=== PATIENT | male | born 1985 | race Caucasian/White ===

== ENCOUNTER 2025-02-25 17:26 | Emergency (ER) | payer OTHER, SELFPAY ==
[2025-02-25 17:31] VITALS: BP 127/94; PULSE 64; TEMP 36.8; O2SAT 98; BMI 23.4
--- NOTE | 2025-02-25 17:43 | ED.LOWEXI1 ---
HPI HPI - Extremity Injury (Lower) General Chief Complaint: Extremity Injury, Lower Stated Complaint: Extremity Injury, Lower Time Seen by Provider: 02/25/25 17:30 Source: patient Mode of arrival: Wheelchair History of Present Illness HPI Narrative: 39 year old male presents to the ED for pain to his left foot and ankle s/p injury 02/23/25. Reports rolling his ankle. Denies N/T, weakness. He has had previous surgery on the ankle with hardware in place. He took Motrin [employer]PRESENT[employer]. Related Data Previous Rx's ?Medication ?Instructions ?Recorded hydrocodone 5 mg-acetaminophen 325 1 tab PO Q8H PRN pain 3 days #9 02/25/25 mg tablet tabs Allergies Allergy/AdvReac Type Severity Reaction Status Date / Time Penicillins Allergy Hives Verified 02/25/25 17:31 Opioid HPI Opioid Management Most Recent Pain and Opioid Data: No Data to Display Review of Systems ROS Constitutional Denies: fever or chills Ears, nose, mouth, and throat Denies: neck pain Cardiovascular Denies: chest pain Respiratory Denies: shortness of breath Musculoskeletal Reports: extremity pain; Denies: back pain Integumentary/Breast Denies: rash or redness Neurological Denies: numbness in extremities or weakness in extremities PFSH PFSH Social History Little interest or pleasure in doing things: not at all Feeling down, depressed, or hopeless: not at all Exam Constitutional Vital Signs, click to edit/add: Last Vital Signs Temp 98.2 F 02/25/25 17:31 Pulse 64 02/25/25 17:31 Resp 16 02/25/25 17:31 BP 127/94 H 02/25/25 17:31 Pulse Ox 98 02/25/25 17:31 O2 Del Method Room Air 02/25/25 17:31 Common normals: no apparent distress and oriented x3 General appearance: cooperative Eye Common normals: conjunctivae normal and no scleral icterus Neck & C-Spine Common normals: supple Chest Chest: symmetrical chest wall rise Respiratory Common normals: normal respiratory effort Effort & inspection: able to speak in complete sentences and symmetric chest movement Cardio Peripheral pulses: radial pulses present and dorsalis pedis pulses present Extremity Other: Tenderness with mild swelling to left medial ankle. Tenderness to foot and lateral knee as well. Distal sensation intact. Pedal pulses palpable. No obvious deformity. Neuro Common normals: oriented x3 and moves all extremities Sensorium/orientation: awake and alert Course Vital Signs Vital signs: Vital Signs Temperature 98.2 F 02/25/25 17:31 Pulse Rate 64 02/25/25 17:31 Respiratory Rate 16 02/25/25 17:31 Blood Pressure 127/94 H 02/25/25 17:31 Pulse Oximetry 98 02/25/25 17:31 Oxygen Delivery Method Room Air 02/25/25 17:31 Temperature 98.2 F 02/25/25 17:31 Pulse Rate 64 02/25/25 17:31 Respiratory Rate 16 02/25/25 17:31 Blood Pressure 127/94 H 02/25/25 17:31 Pulse Oximetry 98 02/25/25 17:31 Oxygen Delivery Method Room Air 02/25/25 17:31 MDM - Extremity Injury (Lower) MDM Narrative Medical decision making narrative: X-rays were negative for acute findings. Findings were discussed. An dari wrap was applied. The application was checked and was appropriate; the LLE remained NVI. OARRS was reviewed. A prescription was provided for norco. Follow up with an orthopedist/recycling operator for further evaluation and treatment. His previous surgery was done in [place], [place] per Dr. Joseph. Medical Records Attestation: I reviewed the patient's medical records. Imaging Data XR: Attestation: I have reviewed the pertinent imaging results. Radiologist's impression: XR left foot: No acute bony process. XR left ankle: No acute bony process. XR left knee: No acute bony process. Discharge Plan Discharge Chief Complaint: Extremity Injury, Lower Clinical Impression: Ankle sprain and strain Patient Disposition: Home, Self-Care Time of Disposition Decision: 18:49 Condition: Good Mode of Transportation: Private Vehicle Prescriptions / Home Meds: New hydrocodone-acetaminophen 5-325 mg tablet 1 tab PO Q8H PRN (Reason: pain) 3 Days Qty: 9 0RF Print Language: Mongolian Instructions: Ankle Sprain (ED), P.R.I.C.E. Treatment (ED) Additional Instructions: Follow up with Dr. Joseph [address], [place] [address] Referrals: Physician,Non-Staff, MD [Primary Care Provider] - 1 week Discharge Date/Time: 02/25/25 19:27
[2025-02-25] MEDS: OXYCODONE HCL/ACETAMINOPHEN 5MG/325MG 1 TAB PO (19:10)
== END 2025-02-25 19:27 | disposition home or self-care (01) ==
PROVIDERS: Emergency Provider Emergency Medicine
DX: S93.402A Sprain of unspecified ligament of left ankle, initial encounter (principal); S96.912A Strain of unspecified muscle and tendon at ankle and foot level, left foot, initial encounter; X50.1XXA Overexertion from prolonged static or awkward postures, initial encounter
CPT/HCPCS: 73562; 73610; 73630; 99285

== ENCOUNTER 2025-08-28 16:38 | Emergency (ER) | payer OTHER, SELFPAY ==
[2025-08-28 16:41] VITALS: BP 137/93; PULSE 76; TEMP 36.7; O2SAT 100; BMI 24.9
--- OUTSIDE RECORDS SUMMARY | 2025-08-28 16:52 | XMS_ITS | CCD ---
Author Organization [facility] Inform ion Partnership [facility] Care Team Providers Care Composite Assembler Name Role Phone TANJA GREERED M Unavailable Unavailable ZOEY, LETICIA M Unavailable Unavailable SELF, REFERRED Unavailable Unavailable SELF, REFERRED Unavailable Unavailable PRAKASH CIDUS Unavailable Unavailable SELF, REFERRED Unavailable Unavailable SELF, REFERRED Unavailable Unavailable LUIS EWENFAHRATY M Unavailable Unavailable SELF, REFERRED Unavailable Unavailable ZOEY, LETICIA M Unavailable Unavailable ZOEY, LETICIA M Unavailable Unavailable ZOEY, LETICIA M Unavailable Unavailable SELF, REFERRED Unavailable Unavailable SELF, REFERRED Unavailable Unavailable EBRAHEIM, JADEN Unavailable Unavailable EBRAHEIM, JADEN Unavailable Unavailable EBRAHEIM, JADEN Unavailable Unavailable MD Unavailable Unavailable MD Unavailable Unavailable CRISTOBALDANIEL M Unavailable Unavailable HOY, JUAN Unavailable Unavailable EBRAHEIM, JADEN Unavailable Unavailable EBRAHEIM, JADEN Unavailable Unavailable HEMEYER, EDWARD Unavailable Unavailable REQUEST, DR NONE LISTED Primary Care Unavaildallin DOMINGO, DR ERINN Hernandez Consulting Unavailable EVERT MARIN Attending Unavailable EVERT MARIN Admitting Unavailable EVERT MARIN Consulting Unavailable Allergies Allergy Classification Reported Allergen(s) Allergy Type Date of Onset Reaction(s) Facility Opioid Agonists (1 source) Morphine Drug Allergy 02-01-2016 [facility] Penicillins (antibiotic) (1 source) Penicillins Drug Allergy 09-12-2013 [facility] (1 source) morphine Drug Allergy 10-03-2016 [facility] (1 source) Penicillins Drug allergy (disorder) 10-03-2016 [facility] Problems Active Problems Problem Classification Problem Date Documented Da te Episodic/Chronic Calculus of urinary tract (2 sources) Calculus of kidney; Translations: [Personal history of urinary calculi] Onset: 06-29-2021 Episodic Nausea and vomiting (1 source) Vomiting, unspecified; Translations: [VOMITING UNSPECIFIED] Onset: 06-29-2021 Episodic Osteoarthritis (1 source) Primary osteoarthritis, right ankle and foot; Translations: [PRIMARY OSTEOARTHRITIS, RIGHT ANKLE AND FOOT] Onset: 01-24-2018 Chronic Other aftercare (1 source) Other [place] [facility] (current) drug therapy; Translations: [OTH ASSISTED CURRENT DRUG THERAPY] Onset: 06-29-2021 Episodic Residual codes; unclassified (1 source) Acquired absence of other specified parts of digestive tract; Translations: [ACQ ABSENCE OTH PART DIGESTV TRACT] Onset: 06-29-2021 Episodic Spondylosis; intervertebral disc disorders; other back problems (4 sources) Low back pain; Translations: [LOW BACK PAIN] Onset: 06-25-2021 Episodic Substance-related disorders (2 sources) Nicotine dependence, cigarettes, uncomplicated; Translations: [Nicotine dependence, unspecified, uncomplicated] Onset: 01-10-2018 Chronic Unclassified (2 sources) Unknown / UNK(Unknown) Onset: 08-28-2017 Past or Other Problems Problem Classification Problem Date Documented Da te Episodic/Chronic Allergic reactions (1 source) Allergy status to penicillin; Translations: [ALLERGY STATUS TO PENICILLIN] Onset: 01-12-2018 Episodic Complications of surgical procedures or medical care (1 source) Infection following a procedure, initial encounter; Translations: [INFECTION FOLLOWING A PROCEDURE, INITIAL ENCOUNTER] Onset: 01-10-2018 Episodic Fracture of lower limb (9 sources) Unspecified fracture of shaft of left tibia, subsequent encounter for closed fracture with routine healing; Translations: [Unspecified fracture of shaft of right tibia, subsequent encounter for closed fracture with routine healing] Onset: 08-28-2017 Episodic Other aftercare (3 sources) Encounter for change or removal of surgical wound dressing; Translations: [ENCOUNTER FOR CHANGE OR REMOVAL OF SURGICAL WOUND DRESSING] Onset: 01-10-2018 Episodic Other connective tissue disease (1 source) Arthrodesis status; Translations: [ARTHRODESIS STATUS] Onset: 01-10-2018 Episodic Results Test Name Value Interpretation Reference Range Facility CBC AUTO DIFFon 06-25-2021 BASO # 0.1 103/ul Normal 0.0-0.1 [facility] Comment on above: Performed By: #### C BC #### [facility] [address] [address] Brinda Adler Basophils/100 WBC (Bld) 0.4 % Normal 0.2-2.0 [facility] Comment on above: Performed By: #### C BC #### [facility] [address] [place], [place] [id number] Brinda Nayely EO # 0.0 103/ul Normal 0.0-0.7 [facility] Comment on above: Performed By: #### C BC #### [facility] [address] [place], [place] [address] Brinda Nayely Eosinophils/100 WBC (Bld) 0.2 % Critically low 0.9-7.0 [facility] Comment on above: Performed By: #### C BC #### [facility] [address] [place] [address] Brinda Nayely Erythrocyte distribution width (RBC) [Ratio] 12.2 % Normal 11.0-15.0 [facility] Comment on above: Performed By: #### C BC #### [facility] [address] [place] [address] Brinda Nayely Hematocrit (Bld) [Volume fraction] 43.5 % Normal 42.0-54.0 [facility] Comment on above: Performed By: #### C BC #### [facility] [address] [place], [place] [address] Brinda Nayely Hemoglobin (Bld) [Mass/Vol] 15.0 g/dL Normal 14.0-18.0 [facility] Comment on above: Performed By: #### C BC #### [facility] [address] [place] [address] Brinda Nayely IG # 0.07 10e3/ul Critically high 0.00-0.03 [facility] Comment on above: Performed By: #### C BC #### [facility] [address] [place] [address] Brinda Nayely IG % 0.5 % Normal 0.0-0.5 [facility] Comment on above: Performed By: #### C BC #### [facility] [address] [place] [address] Brinda Nayely LYMPH # 2.1 103/ul Normal 1.2-3.8 [facility] Comment on above: Performed By: #### C BC #### [facility] [address] [place] [address] Brinda Nayely Lymphocytes/100 WBC (Bld) 15.0 % Critically low 20.5-60.0 [facility] Comment on above: Performed By: #### C BC #### [facility] [address] [place], [place] [address] Brinda Nayely MANUAL DIFF REQ NO Normal [facility] Comment on above: Performed By: #### C BC #### [facility] [address] [place], [place] [address] Brinda Nayely MCH (RBC) [Entitic mass] 32.1 pg Normal 25.9-34.0 [facility] Comment on above: Performed By: #### C BC #### [facility] [address] [place] [address] Brinda Nayely MCHC (RBC) [Mass/Vol] 34.5 g/dL Normal 29.9-35.2 [facility] Comment on above: Performed By: #### C BC #### [facility] [address] [place], [place] [address] Brinda Nayely MCV (RBC) [Entitic vol] 92.9 fL Normal 80.0-94.0 [facility] Comment on above: Performed By: #### C BC #### [facility] [address] [place], [place] [address] Brinda Nayely MONO # 0.8 103/ul Normal 0.3-0.8 [facility] Comment on above: Performed By: #### C BC #### [facility] [address] [place], [place] [address] Brinda Nayely Monocytes/100 WBC (Bld) 5.8 % Normal 1.7-12.0 [facility] Comment on above: Performed By: #### C BC #### [facility] [address] [place], [place] [address] Brinda Nayely NEUT # 11.1 103/ul Critically high 1.4-6.5 [facility] Comment on above: Performed By: #### C BC #### [facility] [address] [place], [place] [address] Brinda Adler Neutrophils/100 WBC (Bld) 78.1 % Critically high 43.0-75.0 [facility] Comment on above: Performed By: #### C BC #### [facility] [address] [place], [place] [address] Brinda Adler Platelet mean volume (Bld) [Entitic vol] 9.4 fL Critically low 9.5-13.5 [facility] Comment on above: Performed By: #### C BC #### [facility] [address] [place], [place] [address] Brinda Adlre PLT 309 103/ul Normal 150-450 [facility] Comment on above: Performed By: #### C BC #### [facility] [address] [place], [place] [address] Brinda Adler RBC 4.68 106/ul Critically low 4.70-6.10 [facility] Comment on above: Performed By: #### C BC #### [facility] [address] [place], [place] [address] Brinda Adler WBC 14.3 103/ul Critically high 4.0-11.0 [facility] Comment on above: Performed By: #### C BC #### [facility] [address] [place], [place] [address] ABD/PELVIS WO CONon 06-25 CT ABD/PELVIS WO CON EXAMINATION: CT ABD/PELVIS WO CON HISTORY: CALCULUS OF KIDNEY ; low back/flank pain, vomiting COMPARISON: No relevant comparison available. TECHNIQUE: Axial, Coronal, and Sagittal images were created without IV contrast. Dose reduction techniques were achieved by using automated exposure control and/or adjustment of mA and/or kV according to patient size and/or use of iterative reconstruction technique. FINDINGS: LUNG BASES: No visible pulmonary or pleural disease. LIVER: No enlargement, atrophy, abnormal density, or significant focal lesion. BILIARY: Cholecystectomy. No abnormal duct dilation. PANCREAS: No lesion, fluid collection, ductal dilatation, or atrophy. SPLEEN: No enlargement or focal lesion. ADRENALS: No mass or enlargement. KIDNEYS: 6 x 5 x 4 mm obstructing stone within the proximal left ureter. Numerous nonobstructing stones within both kidneys. BOWEL/MESENTERY: No visible mass, obstruction, or bowel wall thickening. Normal appendix. AORTA/VASCULAR: No aneurysm or dissection. RETROPERITONEUM: No mass or adenopathy. LYMPH NODES: No adenopathy. URINARY BLADDER: No visible focal wall thickening, lesion, or calculus. PELVIC ORGANS: No visible mass. Pelvic organs appropriate for patient age. ABDOMINAL WALL: No mass or hernia. BONES: No bony lesion or fracture. OTHER: Negative. IMPRESSION: 1. Moderate left hydronephrosis secondary to an obstructing 6 x 5 x 4 mm stone within the proximal ureter. 2. Bilateral nephrolithiasis with numerous nonobstructing stones. Electronically authenticated by: ERINN DOMINGO Date: 2021-06-25 10:41 Normal [facility] DRUG SCREEN RAPID (URINE)on 06-25-2021 AMP Negative Normal NEGATIVE [facility] Comment on above: Performed By: #### PEPE LEAL, DRUGRPD #### [facility] [address] [address] Brinda Nayely BAR Negative Normal NEGATIVE [facility] Comment on above: Performed By: #### Yris RUR UMICRO, DRUGRPD #### [facility] [address] [address] Brinda Nayely BUP Negative Normal NEGATIVE [facility] Comment on above: Performed By: #### E RUR UMICRO, DRUGRPD #### [facility] [address] [address] Brinda Nayely BZO Negative Normal NEGATIVE [facility] Comment on above: Performed By: #### E RUR UMICRO, DRUGRPD #### [facility] [address] [address] Brinda Nayely TINY Negative Normal NEGATIVE [facility] Comment on above: Performed By: #### E RURESTELAICALMA DRUGRPD #### [facility] [address] [address] Brinda Nayely CUT-OFFS SEE BELOW Normal [facility] Comment on above: Result Comment: AMP (Amphetamine): 500ng/mL, BAR (Barbituates): 200 ng/mL, BZO (Benzodiazepines): 150 ng/mL, BUP (Buprenorphine): 10 ng/mL, TINY (Cocaine): 150 ng/mL, mAMP (Methamphetamine): 500 ng/mL, MTD (Methadone): 200 ng/mL, OPI (Opiates): 100 ng/mL, OXY (Oxycodone): 100 ng/mL, PCP (Phencyclidine): 25 ng/mL, PPX (Propoxyphene): 300 ng/mL, THC (Cannabinoids): 50 ng/mL, TCA (Trycyclic Antidepressants): 300 ng/mL Performed By: #### E RUR UMICRO, DRUGRPD #### [facility] [address] [place] [address] DRUG CUT HEADER DRUG CLASS TEST SYST EM CUT-OFF CONCENTRATIONS ARE FOLLOWS: Normal [facility] Comment on above: Performed By: #### Yris RUR UMICRO, DRUGRPD #### [facility] [address] [place] [address] Brinda Nayely mAMP Negative Normal NEGATIVE [facility] Comment on above: Performed By: #### Yris RIVERAR UMICRO, DRUGRPD #### [facility] [address] [place] [address] Brinda Nayely MTD Negative Normal NEGATIVE [facility] Comment on above: Performed By: #### E RUR UMICRO, DRUGRPD #### [facility] [address] [place] [address] Brinda Nayely OPI Negative Normal NEGATIVE [facility] Comment on above: Performed By: #### E RUR UMICRO, DRUGRPD #### [facility] [address] [place] [address] Brinda Nayely OXY Negative Normal NEGATIVE [facility] Comment on above: Performed By: #### E RUR UMICRO, DRUGRPD #### [facility] [address] [place] [address] Brinda Nayely PCP Negative Normal NEGATIVE [facility] Comment on above: Performed By: #### E RUR UMICRO, DRUGRPD #### [facility] [address] [place] [address] Brinda Nayely PPX Negative Normal NEGATIVE [facility] Comment on above: Performed By: #### PEPE LEAL DRUGRPD #### [facility] [address] [place] [address] Brinda Nayely TCA Negative Normal NEGATIVE [facility] Comment on above: Performed By: #### PEPE LEAL DRUGRPD #### [facility] [address] [place] [address] Brinda Nayely THC Positive Abnormal NEGATIVE [facility] Comment on above: Performed By: #### PEPE LEAL DRUGRPD #### [facility] [address] [place] [address] Brinda Adler ER URINE PROFILEon 1 Bilirubin Ql (U) Negative Normal NEGATIVE [facility] Comment on above: Performed By: #### PEPE LEAL DRUGRPD #### [facility] [address] [place] [address] Brinda Nayely Clarity (U) SL CLOUDY Abnormal CLEAR [facility] Comment on above: Performed By: #### PEPE LEAL DRUGRPD #### [facility] [address] [place] [address] Brinda Nayely Color (U) YELLOW Normal YELLOW [facility] Comment on above: Performed By: #### PEPE LEAL DRUGRPD #### [facility] [address] [place] [address] Brinda Adler ERUAHD A micrscopic examina tion will be performed if indicated. Normal [facility] Comment on above: Performed By: #### PEPE LEAL DRUGRPD #### [facility] [address] [place] [address] Brinda Nayely Glucose Ql (U) Negative Normal NEGATIVE [facility] [place] Comment on above: Performed By: #### PEPE LEAL DRUGRPD #### [facility] [address] [place] [address] Brinda Nayely Hemoglobin Ql (U) LARGE Abnormal NEGATIVE [facility] Comment on above: Performed By: #### PEPE LEAL DRUGRPD #### [facility] [address] [place] [address] Brinda Nayely Ketones Ql (U) 15 mg/dl Abnormal NEGATIVE [facility] Comment on above: Performed By: #### PEPE LEAL DRUGRPD #### [facility] [address] [place] [address] Brinda Nayely LEUKOCYTES Negative Normal NEGATIVE [facility] Comment on above: Performed By: #### PEPE LEAL DRUGRPD #### [facility] [address] [place] [address] Brinda Nayely Nitrite Ql (U) Negative Normal NEGATIVE [facility] [place] Comment on above: Performed By: #### PEPE LEAL DRUGRPD #### [facility] [address] [place] [address] Brinda Nayely pH (U) 6.0 [pH] Normal 5-9 [facility] Comment on above: Performed By: #### PEPE LEAL DRUGRPD #### [facility] [address] [place] [address] Brinda Nayely Protein (U) [Mass/Vol] 30 mg/dL Abnormal NEGATIVE/ TRACE [facility] Comment on above: Performed By: #### PEPE LEAL DRUGRPD #### [facility] [address] [place] [address] Brinda Nayely SPEC GRAVITY 1.020 Normal 1.005-<=1.[address] [facility] Comment on above: Performed By: #### PEPE LEAL DRUGRPD #### [facility] [address] [place] [address] Brinda Nayely UR MICRO IND INDICATED Normal [facility] Comment on above: Performed By: #### PEPE LEAL DRUGRPD #### [facility] [address] [place] [address] Brinda Nayely Urobilinogen Qn (U) 0.2 {Anita'U}/dL Normal 0.2 - 1.0 [facility] Comment on above: Performed By: #### E PEPE GAVIRIA, DRUGRPD #### [facility] [address] [place] [address] Brinda Nayely PROF 14(COMP METB)on 021 Albumin [Mass/Vol] 4.3 g/dL Normal 3.5-5.0 [facility] Comment on above: Performed By: #### C MP #### [facility] [address] [place], [place] [address] Brinda Nayely Albumin/Globulin [Mass ratio] 1.3 {ratio} Normal [facility] Comment on above: Performed By: #### C MP #### [facility] [address] [place], [place] [address] Brinda Nayely ALP [Catalytic activity/Vol] 85 U/L Normal 38-126 [facility] Comment on above: Performed By: #### C MP #### [facility] [address] [place], [place] [address] Brinda Nayely ALT [Catalytic activity/Vol] 59 U/L Normal 21-72 [facility] Comment on above: Performed By: #### C MP #### [facility] [address] [place], [place] [address] Brinda Nayely Anion gap [Moles/Vol] 15.5 mmol/L Normal [facility] Comment on above: Performed By: #### C MP #### [facility] [address] [place], [place] [address] Brinda Nayely AST [Catalytic activity/Vol] 22 U/L Normal 17-59 [facility] Comment on above: Performed By: #### C MP #### [facility] [address] [place], [place] [address] Brinda Nayely Bilirubin [Mass/Vol] 0.4 mg/dL Normal 0.2-1.3 [facility] Comment on above: Performed By: #### C MP #### [facility] [address] [place], [place] [address] Brinda Nayely Calcium [Mass/Vol] 9.6 mg/dL Normal 8.4-10.2 [facility] Comment on above: Performed By: #### C MP #### [facility] [address] [place] [address] Brinda Nayely Chloride [Moles/Vol] 106 mmol/L Normal 98-107 [facility] Comment on above: Performed By: #### C MP #### [facility] [address] [place] [address] Brinda Nayely CO2 [Moles/Vol] 24.9 mmol/L Normal 22.0-30.0 [facility] Comment on above: Performed By: #### C MP #### [facility] [address] [place] [address] Brinda Nayely Creatinine [Mass/Vol] 1.13 mg/dL Normal 0.66-1.25 [facility] Comment on above: Performed By: #### C MP #### [facility] [address] [place] [address] Brinda Nayely EGFR-AF MALDIVIAN >60 Normal >=60 [facility] Comment on above: Performed By: #### C MP #### [facility] [address] [place] [address] Brinda Nayely EGFR-NON AF MALDIVIAN >60 Normal >=60 [facility] Comment on above: Performed By: #### C MP #### [facility] [address] [place] [address] Brinda Nayely Globulin (S) [Mass/Vol] 3.4 g/dL Normal [facility] Comment on above: Performed By: #### C MP #### [facility] [address] [place] [address] Brinda Nayely Glucose [Mass/Vol] 144 mg/dL Critically high 74-106 [facility] Comment on above: Performed By: #### C MP #### [facility] [address] [place] [address] Brinda Nayely Potassium [Moles/Vol] 4.4 mmol/L Normal 3.4-5.0 [facility] Comment on above: Performed By: #### C MP #### [facility] [address] [id number] Brinda Nayely Protein [Mass/Vol] 7.7 g/dL Normal 6.1-8.2 [facility] Comment on above: Performed By: #### C MP #### [facility] [address] [address] Brinda Nayely Sodium [Moles/Vol] 142 mmol/L Normal 137-145 [facility] Comment on above: Performed By: #### C MP #### [facility] [address] [address] Brinda Nayely Urea nitrogen [Mass/Vol] 8.0 mg/dL Critically low 9.0-20.0 [facility] Comment on above: Performed By: #### C MP #### [facility] [address] [address] Brinda Nayely Urea nitrogen/Creatinin e [Mass ratio] 7.1 mg/mg Normal [facility] Comment on above: Performed By: #### C MP #### [facility] [address] [id number] Brinda Nayely URINE MICROSCOPIC ONLYon BACTERIA TRACE Abnormal NONE SEEN [facility] Comment on above: Performed By: #### PEPE LEAL DRUGRPD #### [facility] [address] [address] Brinda Nayely Bacteria identified Cx Nom (U) NOT INDICATED Normal [facility] Comment on above: Performed By: #### PEPE LEAL DRUGRPD #### [facility] [address] [address] Brinda Nayely CAST NONE SEEN Normal NONE SEEN [facility] Comment on above: Performed By: #### PEPE LEAL DRUGRPD #### [facility] [address] [id number] Brinda Nayely Crystals LM Nom (Urine sed) NONE SEEN Normal NONE SEEN [facility] Comment on above: Performed By: #### PEPE LEAL DRUGRPD #### [facility] [address] [address] Brindajatin Adler Epithelial cells LM Ql (Urine sed) FEW Abnormal NONE SEEN /RARE [facility] Comment on above: Performed By: #### PEPE LEAL DRUGRPD #### [facility] [address] [address] Brinda Nayely MUCOUS MODERATE Abnormal NONE SEEN [facility] Comment on above: Performed By: #### E PEEP GAVIRIA DRUGRPD #### [facility] [address] [address] Brinda Nayely RBC 20-50 Abnormal 0-2 [facility] Comment on above: Performed By: #### PEPE LEAL DRUGRPD #### [facility] [address] [address] Brinda Nayely WBC NONE SEEN Normal NONE SEEN [facility] Comment on above: Performed By: #### PEPE LEAL DRUGRPD #### [facility] [address] [id number] Brinda Nayely TIBIA FIBULA RIGHTon 018 [facility] FIBULA RIGHT [facility] [place] [id number] ==Patient Name: SAUD VIRK : 1985Sex: MAge: Race: WhiteMRN: [id number]. Location: 83Patient Status: Date: 01/24/2018 9:55:00 AMCompleted Date: 01/24/2018 09:52 AMRequesting Provider: JADEN WALKER Attending Provider: Report Copy To: Signs & Symptoms: S82.201D Unsp fx shaft of right tibia, subs for clos fx w routn heal [id number]: AthenaComments: , , Views (X-RAY, TIBIA AND FIBULA): AP, Lateral , , , Ordering Provider - JADEN WALKER MD , Exam: TIBIA FIBULA RIGHTAccession #: [id number] =========TIBIA FIBULA RIGHT 01/24/2018 9:52 AM EST SIGNS AND SYMPTOMS: S82.201D Unsp fx shaft of right tibia, subs for clos fx w routn heal I10 TECHNOLOGIST COMMENTS: Patient states last surgery x 2 weeks ortho follow up of right tibia QUESTION FOR THE RADIOLOGIST: , , Views (X-RAY, TIBIA AND FIBULA): AP, Lateral , , , Ordering Provider - JADEN WALKER MD , PROTOCOL: AP(PA) and Lateral views were obtained. COMPARISON: January 12, 2018 FINDINGS: Soft tissues:Mild swelling and postoperative change Bones:Hardware removal and fractures healing in satisfactory alignment Joints:Mild tibiotalar osteoarthritis IMPRESSION: Post hardware removal with tibial fracture healing in good alignment but mild tibiotalar osteoarthritis Electronically signed by:Fredi Curry. Transcribed by: [email or web address], User Resident: Electronically Signed by: FREDI CURRY @ 01/24/2018 01:44 PM [facility] Comment on above: Order Comment: , , V iews (X-RAY, TIBIA AND FIBULA): AP, Lateral , , , Ordering Provider - JADEN WALKER MD , *ANAEROBIC CULTUREon 018 *ANAEROBIC CULTURE Clinical Report: (D) Specimen/Source: SWAB/RT TIBIA Collected: 01/12/2018 08:52 Status: Final Last Updated: 01/17/2018 08:45 ISO (Final) No Anaerobes Isolated Day [address] [facility] Comment on above: Performed By: #### 5 0103, 30689 ####[facility]3000 [facility].[address] *WOUND CULTUREon 01-12-2018 *WOUND CULTURE Clinical Report: (D) Specimen/Source: WOUND/INTRAOP SPEC Collected: 01/12/2018 08:52 Status: Final Last Updated: 01/13/2018 10:42 (1) #1 RT TIBIA GRAM (Final) Rare Polys No Bacteria Seen ISO (Final) Staphylococcus aureus Rare Growth For Susceptibility Results Please Refer to Normal [facility] Comment on above: Order Comment: #1 RT TIBIA Performed By: #### 5 0103, 65829 ####[facility] Operative Reporton 8 Operative Report MR#: [id number] [facility] Pt. Name: Saud Virk Room #: 0C Discharge Date: Birthdate: 1985 OPERATIVE REPORTDATE OF SURGERY: 01/12/2018SURGEON: Jaden Walker M.D.ASSISTANTS: Dr. Yessica Kim, Dr. Tomer Henry and Serafin Laboy, medicalstudent.PREPROCED URE DIAGNOSIS: Right distal tibia retained hardware.POSTOPERATIVE DIAGNOSIS: Right distal tibia, status post hardwareremoval.PROCEDUR ES PERFORMED: With right distal tibia hardware removal, deep andapplication of a short-leg splint on the right lower extremity.INDICATIONS FOR THE PROCEDURE: The patient is a 32-year-old male, whopreviously underwent open reduction and internal fixation for his rightdistal tibial fracture with plate screws. After clinical followup andradiographic imaging suggesting well-healed fractures at that time. Thepatient requested to have his hardware removed. After being explained therisks, benefits, and alternatives in clinic, the patient elected to proceedwith right distal tibia hardware removal. He was consented at that time.PROCEDURE IN DETAIL: The patient was met on the day of surgery in thepreoperative holding area where the operative extremity was identified andmarked at that time. Consent was reviewed with the patient at that time.The patient was then taken back to the operating room, sedated perAnesthesia protocol including a MAC sedation. The patient was placed in asupine position. Nonsterile tourniquet was applied. The limb was notexsanguinated, lifted and the tourniquet was deployed prior to incision.The right lower extremity was prepped and draped in sterile fashion. Atime-out was performed. Intraoperative fluoroscopy was used to identifythe proximal and distal ends of our plate. We then made incision over hisexisting scar. Some scabbed poor healing tissue was excised in anellipsoid fashion. Culture swabs were taken from the patient's incisionalwound. We then dissected down to the plate and removed the plate and allthe screws including the 2 AP lag screws. The wound was then copiouslyirrigated with Betadine saline. The wound was closed with 0 Vicryl, 3-0Vicryl suture deeply and 3-0 Novafil suture superficially. The patient wasthen injected with local anesthetic, 10 mL of 0.25% Marcaine. The patienttolerated the procedure well. There were no complications. Blood loss wasminimal. Total tourniquet time was [address] Walker was present for all critical portions of procedure.POSTOPERATIVE INSTRUCTIONS: The patient will be nonweightbearing on theright lower extremity. The patient is to keep his splint on and clean,dry, and intact until clinical followup. We will see the patient forclinical followup in 2 weeks' time.Electronically Signed by:Jaden Walker M.D. 01/12/2018 06:15 P Jaden Walker M.D. I was present for the williamson and critical portions and I was otherwiseimmediately available to assist. Date Dict: 01/12/2018/09:51 A/Lee Ann Parker Trans: 01/12/2018 11:16 A/Eliseo_JN:[id number] Normal [facility] POC GLUCOSE LABon 01-12-2018 Glucose mass conc 109 mg/dL High 70-100 [facility] Comment on above: Performed By: #### 5 0103, 74445 ####[facility] TIBIA FIBULA RIGHTon 018 TIBIA FIBULA RIGHT [facility] [address] [place] [address] ==Patient Name: SAUD VIRK : 1985Sex: MAge: Race: WhiteMRN: [id number]. Location: OUTPPatient Status: OVisit #: [id number] Date: 01/12/2018 1:15:00 PMCompleted Date: 01/12/2018 09:53 AMRequesting Provider: JADEN WALKER Attending Provider: JADEN WALKER Report Copy To: Signs & Symptoms: RT TIBIA HARDWARE REMOVALHistory: RT TIBIA HARDWARE REMOVALComments: RT TIBIA HARDWARE REMOVALExam: TIBIA FIBULA RIGHTAccession #: [id number] =========TIBIA FIBULA RIGHT 01/12/2018 9:53 AM EST SIGNS AND SYMPTOMS: RT TIBIA HARDWARE REMOVAL TECHNOLOGIST COMMENTS: 8 secs of fluoro used by Dr Walker RT tibia hardware removal QUESTION FOR THE RADIOLOGIST: RT TIBIA HARDWARE REMOVAL PROTOCOL: AP(PA) and Lateral views were obtained. COMPARISON: None FINDINGS: Soft tissues: Bones: Joints: IMPRESSION: Documentation Electronically signed by:Fredi Curry. Transcribed by: [id number], User Resident: Electronically Signed by: FREDI CURRY @ 01/12/2018 10:16 AM Normal [facility] Comment on above: Order Comment: RT TI XANDER HARDWARE REMOVAL *WOUND CULTUREon 02-21-2018 *WOUND CULTURE Clinical Report: (D) Specimen/Source: WOUND/DRAIN SITE Collected: 01/10/2018 13:41 Status: Final Last Updated: 01/12/2018 09:02 GRAM (Final) Few Polys No Bacteria Seen ISO (Final) Staphylococcus aureus Light Growth ISOLATE: Staphylococcus aureus MYRON (mcg/ml) CLINDAMYCIN (CC) <=0.5 Susceptible DAPTOMYCIN (DAP) <=1 Susceptible ERYTHROMYCIN (E) <=0.5 Susceptible OXACILLIN (OX) 0.5 Susceptible PENICILLIN (P) 1 Resistant TETRACYCLINE (TE) <=0.5 Susceptible TRIMETH/SULFA (SXT) <=0.5/9.5 Susceptible VANCOMYCIN (VA) 1 Susceptible Normal [facility] Comment on above: Performed By: #### 3 0343 ####[address] APTTon 01-10-2018 aPTT 28.6 s Normal 25.0-35.0 [facility] Comment on above: Result Comment: ALL RESULTS MUST BE INTERPRETED WITH RESPECT TO BLOOD DRAWING ARTIFACTOR DILUTION ERROR OF ANTICOAGULANT AT THE TIME OF SAMPLING.THE APTT SHOULD NOT BE USED TO MONITOR UNFRACTIONATED HEPARIN THERAPY, THIS LABORATORY NO LONGER HAS AN ESTABLISHED THERAPEUTIC RANGE BASEDON THE APTT. IT IS RECOMMENDED THAT THE [facility] - HEPARIN ASSAY (ANTI-XAACTIVITY) BE USED FOR THIS PURPOSE. Performed By: #### 5 7307, 08885 ####[place] [address] BASIC METABOLIC PANELon 12-22 Calcium 10.1 mg/dL Normal 8.6-10.3 [facility] Comment on above: Performed By: #### 0 0071 ####[address] Chloride 105 mmol/L Normal 98-107 [facility] Comment on above: Performed By: #### 0 0071 ####[place] [address], [facility] CO2 26 mmol/L Normal 21-31 [facility] Comment on above: Performed By: #### 0 0071 ####[facility] [place] [address], [facility] Creatinine 0.64 mg/dL Low 0.70-1.[address] [facility] Comment on above: Performed By: #### 0 0071 ####[facility] [place] [address], [facility] eGFR (black) mL/min/{1.73_m2} Normal >60 The [facility] Comment on above: Performed By: #### 0 0071 ####[facility] [place] [address], [facility] eGFR (non-black) mL/min/{1.73_m2} Normal >60 [facility] Comment on above: Performed By: #### 0 0071 ####[facility] [place] [address], [facility] Glucose mass conc 79 mg/dL Normal 70-100 [facility] Comment on above: Performed By: #### 0 0071 ####[facility] [place] [address], [facility] Potassium molar conc 3.9 mmol/L Normal 3.5-5.[address] [facility] Comment on above: Performed By: #### 0 0071 ####[facility] [place] [address], [facility] Sodium 135 mmol/L Low 136-145 [facility] Comment on above: Performed By: #### 0 0071 ####[facility] [place] [address], [facility] Urea nitrogen 11 mg/dL Normal 7-25 [facility] Comment on above: Performed By: #### 0 0071 ####[facility]3000 [facility].[address] C REACTIVE PROTEINon 018 C reactive protein (CRP) 1.8 mg/L Normal 0.0-7.[address] [facility] Comment on above: Performed By: #### 6 1405 ####[facility]3000 [facility].[address] CBC W/DIFFon 01-10-2018 ABS BASOPHILS 0.0 10*3/uL Normal 0.0-0.[address] [facility] Comment on above: Performed By: #### 5 0103, 86085 ####[place] [address] [facility].[address] ABS IMM GRANS 0.0 10*3/uL Normal 0.0-0.[address] [facility] Comment on above: Performed By: #### 5 010, 38811 ####[facility]3000 [facility].[address] Basophils Auto #/vol (Bld) 0.4 % Normal 0.0-1.0 [facility] Comment on above: Performed By: #### 5 0103, 49070 ####[place] [address] [facility].[address] Eosinophils 0.3 10*3/uL Normal 0.0-0.5 [facility] Comment on above: Performed By: #### 5 0103, 84886 ####[place] [address] [facility].[address] Eosinophils/100 leukocytes 3.0 % Normal 0.0-6.0 [facility] Comment on above: Performed By: #### 5 0103, 86942 ####[place] [address] [facility].[address] Erythrocyte distribution width Auto Ratio (RBC) 12.2 % Normal 11.5-15.0 [facility] Comment on above: Performed By: #### 5 102, 34204 ####[facility]3000 [facility].[address] Erythrocytes (RBC) 0 % Normal 0-0 The [facility] Comment on above: Performed By: #### 5 102, 43868 ####[facility]3000 [facility].[address] Erythrocytes (RBC) 5.45 10*6/uL Normal 4.20-5.70 [facility] Comment on above: Performed By: #### 5 102, 32606 ####[place] [address] [facility].[address] Hematocrit (HCT) 46.4 % Normal 39.0-50.0 The [facility] Comment on above: Performed By: #### 5 102, 93826 ####[address] Hemoglobin mass conc (Bld) 15.6 g/dL Normal 13.0-17.0 [facility] Comment on above: Performed By: #### 5 102, 23708 ####[place] [address] [facility].[address] IMMATURE GRANS 0.3 % Normal 0.0-1.[address] [facility] Comment on above: Performed By: #### 5 102, 29515 ####[facility]3000 [facility].[address] Lymphocytes 4.2 10*3/uL High 1.2-4.0 [facility] Comment on above: Performed By: #### 5 102, 57674 ####[address] Lymphocytes/100 leukocytes 42.9 % Normal 20.0-45.0 [facility] Comment on above: Performed By: #### 5 102, 90521 ####[facility]3000 [facility].[address] MCH 28.6 pg Normal 27.0-33.0 [facility] Comment on above: Performed By: #### 5 102, 89573 ####[facility]3000 [facility].[address] MCHC mass conc (RBC) 33.6 g/dL Normal 32.0-35.0 [facility] Comment on above: Performed By: #### 5 102, 49627 ####[facility]3000 [facility].[address] MCV 85.1 fL Normal 82.0-98.0 [facility] Comment on above: Performed By: #### 5 102, 28091 ####[facility]3000 [facility].[address] Monocytes 0.8 10*3/uL Normal 0.1-1.0 The [facility] Comment on above: Performed By: #### 5 102, 49029 ####[facility]3000 [facility].[address] MONOS 7.7 % Normal 5.0-12.0 [facility] Comment on above: Performed By: #### 5 102, 55080 ####[facility]3000 [facility].[address] Neutrophils 4.5 10*3/uL Normal 1.6-7.6 [facility] Comment on above: Performed By: #### 5 102, 34118 ####[facility]3000 [facility].[address] Neutrophils/100 leukocytes 45.7 % Normal 40.0-72.0 [facility] Comment on above: Performed By: #### 5 102, 70357 ####[facility]3000 [facility] [place] [address], [facility] PLAT CNT 346 10*3/uL Normal 150-400 [facility] Comment on above: Performed By: #### 5 010, 72874 ####[facility] WBC (Leukocytes) 9.8 10*3/uL Normal 4.0-10.6 [facility] Comment on above: Performed By: #### 5 102, 87988 ####[facility] PROTHROMBIN TIMEon 8 INR Coag RelTime (PPP) 0.95 {INR} Normal 0.91-1.[address] [facility] Comment on above: Result Comment: ACCC P RECOMMENDED INR FOR WARFARIN THERAPY CONDITION INRPROPHYLAXIS OF VENOUS THROMBOSIS 2-3(HIGH-RISK SURGERY)TREATMENT OF VENOUS THROMBOSIS 2-3TREATMENT OF PULMONARY EMBOLISM 2-3PREVENTION OF SYSTEMIC EMBOLISM: 2-3 ACUTE MYOCARDIAL INFARCTION TISSUE HEART VALVES VALVULAR HEART DISEASE ATRIAL FIBRILLATION RECURRENT SYSTEMIC EMBOLISMMECHANICAL HEART VALVE 2.5-3.5 FROM: ORAL ANTICOAGULANTS. MECHANISM OF ACTION, CLINICALEFFECTIVENESS, AND OPTIMAL THERAPEUTIC RANGE. [id number];108:231S-246S. Performed By: #### 5 7307, 04138 ####[facility]3000 [facility].[address] Prothrombin time (PT) Coag time (PPP) 12.7 s Normal 12.3-14.8 [facility] Comment on above: Result Comment: ALL RESULTS MUST BE INTERPRETED WITH RESPECT TO BLOOD DRAWING ARTIFACTOR DILUTION ERROR OF ANTICOAGULANT AT THE TIME OF SAMPLING. Performed By: #### 5 7307, 46079 ####[facility]3000 [facility] [place] [address], [facility] SEDIMENTATION RATEon 018 SED RATE 2 mm/hr Normal 0-10 [facility] Comment on above: Performed By: #### 5 0103, 96737 ####[address] [place] [address], [facility] TIBIA FIBULA RIGHTon 018 TIBIA FIBULA RIGHT [facility] [address] [place], [place] [address] ==Patient Name: SAUD VIRK : 1985Sex: MAge: Race: WhiteMRN: [id number]. Location: Patient Status: DVisit #: [id number] Date: 01/10/2018 2:55:00 PMCompleted Date: 01/10/2018 02:57 PMRequesting Provider: LETICIA GREER Attending Provider: LETICIA GREER Report Copy To: Signs & Symptoms: S82.201D Unsp fx shaft of right tibia, subs for clos fx w routn heal [id number]: AthenaComments: , , Views (X-RAY, TIBIA AND FIBULA): AP, Lateral , , , Ordering Provider - LETICIA GREER PA-C , Rendering Provider - LETICIA GREER PA-C , Exam: TIBIA FIBULA RIGHTAccession #: [id number] =========TIBIA FIBULA RIGHT 01/10/2018 2:57 PM EST SIGNS AND SYMPTOMS: S82.201D Unsp fx shaft of right tibia, subs for clos fx w routn heal I10 TECHNOLOGIST COMMENTS: right distal tibia pain fx - 18 months ago f/u QUESTION FOR THE RADIOLOGIST: , , Views (X-RAY, TIBIA AND FIBULA): AP, Lateral , , , Ordering Provider - LETICIA ZOEY PA-C , Rendering Provider - LETICIA ZOEY PA-C , PROTOCOL: AP(PA) and Lateral views were obtained. COMPARISON: December 14, 2016 FINDINGS: Soft tissues:No change Bones:Continued healing with tibial plate and screw fixation in good alignment Joints:Knee and ankle intact IMPRESSION: Healing tib-fib fractures in satisfactory alignment with progression of bony reaction since prior study Electronically signed by:Fredi Curry. Transcribed by: [email or web address], User Resident: Electronically Signed by: FREDI CURRY @ 01/11/2018 10:55 AM Normal [facility] Comment on above: Order Comment: , , V iews (X-RAY, TIBIA AND FIBULA): AP, Lateral , , , Ordering Provider - LETICIA ZOEY PA-C , Rendering Provider - LETICIA ZOEY PA-C , C REACTIVE PROTEINon 017 C reactive protein (CRP) 4.2 mg/L Normal 0.0-7.0 [facility] Comment on above: Performed By: #### 6 1405 ####[facility] [place] [address], [facility] CBC W/DIFFon 08-28-2017 Basophils Auto #/vol (Bld) 0.4 % Normal 0.0-2.0 [facility] Comment on above: Performed By: #### 5 0103, 19411 ####[facility] [place] [address], [facility] Eosinophils/100 leukocytes 2.9 % Normal 0.0-5.0 [facility] Comment on above: Performed By: #### 5 102, 16990 ####[facility] [place] [address], [facility] Erythrocyte distribution width Auto Ratio (RBC) 11.8 % Normal 11.5-16.9 [facility] Comment on above: Performed By: #### 102, 66707 ####[facility]3000 [facility].[address] Erythrocytes (RBC) 4.94 mill/mm3 Normal 4.30-5.90 [facility] Comment on above: Performed By: #### 5 102, 38022 ####[facility]3000 [facility].[address] Hematocrit (HCT) 42.6 % Normal 39.0-55.0 [facility] Comment on above: Performed By: #### 102, 49553 ####[facility]3000 [facility].[address] Hemoglobin mass conc (Bld) 14.0 g/dL Normal 13.9-16.3 [facility] Comment on above: Performed By: #### 102, 34896 ####[facility] [place] [address], [facility] Lymphocytes/100 leukocytes 41.5 % High 20.0-40.0 [facility] Comment on above: Performed By: #### 5 102, 96386 ####[facility] [place] [address], [facility] MCH 28.4 pg Normal 24.0-32.0 [facility] Comment on above: Performed By: #### 5 0103, 62087 ####[facility] [place] [address], [facility] MCHC mass conc (RBC) 32.9 g/dL Normal 32.0-36.[address] [facility] Comment on above: Performed By: #### 5 010, 39479 ####[facility] [place] [address], [facility] MCV 86.4 fL Normal 80.0-100.0 [facility] Comment on above: Performed By: #### 5 010, 04926 ####[facility] [place] [address], [facility] METHOD Normal RBC Morphology Normal [facility] Comment on above: Performed By: #### 5 010, 25521 ####[facility] [place] [address], [facility] MONOS 7.9 % Normal 2-8 [facility] Comment on above: Performed By: #### 5 102, 30980 ####[facility] [place] [address], [facility] Neutrophils/100 leukocytes 47.3 % Low 50-70 [facility] Comment on above: Performed By: #### 5 102, 03993 ####[facility] [place] [address], [facility] PLAT CNT 402 Thou/mm3 High 100-400 [facility] Comment on above: Performed By: #### 5 102, 46063 ####[facility] [place] [address], [facility] WBC (Leukocytes) 8.7 Thou/mm3 Normal 4.0-10.[address] [facility] Comment on above: Performed By: #### 5 010, 71764 ####[facility] [place] [address], [facility] SEDIMENTATION RATEon 017 SED RATE 28 mm/hr High 0-10 [facility] Comment on above: Performed By: #### 5 0103, 53075 ####[facility] [place] [address], [facility] Encounters Encounter Date Encounter Type Care Provider Facility Start: 06-25-2021 End: 06-25-[address] NONE LISTED REQUEST Facility: Start: 01-24-2018 End: 01-25-2018 Ambulatory JUAN MIRANDA Facility:[facility] Start: 01-12-2018 End: 01-13-2018 Ambulatory REFERRED SELF Facility:[facility] Start: 01-10-2018 End: 01-11-2018 Ambulatory REFERRED SELF Facility:[facility] Start: 01-10-2018 End: 01-10-2018 Emergency department patient visit MONY CID Facility:[facility] Start: 08-28-2017 End: 08-29-2017 Ambulatory LETICIA Ashton ZOEY Facility:[facility] Procedures Date Procedure Procedure Detail Performing Clinician Start: 01-12-2018 ANESTH LOWER LEG BONE SURG DANIEL CRISTOBAL Start: 01-12-2018 REMOVAL OF SUPPORT IMPLANT JADNE EBRAHEIM Payers Date Payer Category Payer Unknown [id number] 1960 Self-pay [id number] Unknown [id number] Summary Purpose Family History No Family History Records FoundNo Family History Records Found Advance Directives No Advanced Directives Records FoundNo Advanced Directives Records Found Additional Source Comments (unrecognized sect ion and content) No Status Records FoundNo Status Records Found INFORMATION SOURCE (unrecogn ized section and content) DATE CREATED AUTHOR 05/11/2018 [facility] DATE CREATED AUTHOR AUTHOR'S ORGANIZ ATION 06/29/2021 The Laura oropeza FOR RECORDS PERTAINING TO PATIENTS WHO ARE OR HAVE BEEN ENROLLED IN A CHEMICAL DEPENDENCY/SUBSTANCEABUSE PROGRAM, SOME INFORMATION MAY BE OMITTED. This clinical summary was aggregated from multiple sources. Caution should be exercised in using it in the provision of clinical care. This summary normalizes information from multiple sources, and as a consequence, information in this document may materially change the coding, format and clinical context of patient data. In addition, data may be omitted in some cases. CLINICAL DECISIONS SHOULD BE BASED ON THE PRIMARY CLINICAL RECORDS. [facility] [employer] [facility]. provides no warranty or guarantee of the accuracy or completeness of information in this document.
--- NOTE | 2025-08-28 16:56 | XR_ITS ---
The [address] [address] Patient Name: BENNY VIRK MRN: [id number] date: 1985 Sex: M Assigned Patient Location: ER Current Patient Location: ER Accession/Order Number: [id number] Exam Date: 08/28/2025 17:05 Report Date: 08/28/2025 18:06 At the request of: GO REED Procedure: XR chest 1V PA CHEST: CLINICAL HISTORY: Chest pain, SOB COMPARISON: None Unremarkable cardiomediastinal. Lungs clear. No effusion or pneumothorax. XR/XR chest 1V IMPRESSION: Negative acute pleural-parenchymal disease.. Impression dictated by: Brigido Betts M.D. 08/28/2025 6:06 PM Dictation Location: [place] [address] Electronically authenticated by: [id number] Y Date: 08/28/2025 18:06
--- NOTE | 2025-08-28 16:57 | ED_ITS ---
HPI HPI - General Adult General Chief complaint: Upper Respiratory Infection Stated complaint: CHEST PAIN SOB Time Seen by Provider: 08/28/25 16:48 Source: patient Mode of arrival: walk-in Limitations: no limitations History of Present Illness HPI narrative: Patient is a 40-year-old male that presents to the emergency department with complaint of 4 days of substernal chest pain and shortness of breath. He also complains of cough, nasal congestion, and diarrhea. He denies nausea, vomiting, or abdominal pain. He states that he has no sick contacts that he knows of. He denies fever but states he has had night sweats. He has been off work for the past few days. He does have a history of allergies and has been taking Benadryl without relief. He is a smoker and has been smoking for 20+ years. Related Data Allergies Allergy/AdvReac Type Severity Reaction Status Date / Time Penicillins Allergy Hives Verified 02/25/25 17:31 Review of Systems ROS Status of ROS 10 or more systems reviewed and unremark able except as noted in history and below PFSH PFSH Social History Little interest or pleasure in doing things: not at all Feeling down, depressed, or hopeless: not at all Exam Narrative Exam Narrative: General: No distress, age-appropriate Skin: Warm, dry, no pallor. No rash. Head: Normocephalic, atraumatic. Neck: Supple, non-tender. Eye: Pupils are equal, round and EOMI. No scleral icterus. Ears, Nose, Mouth, and Throat: TMs intact bilaterally, ear canal erythema, no nasal mucosal hypertrophy. Oral mucosa is moist, mild posterior oropharynx erythema, no tonsillar exudates, uvula is mid-line Cardiovascular: Regular Rate and Rhythm without murmur, gallop or rub. Respiratory: No accessory muscle use or respiratory distress. Lungs are clear to auscultation, no wheezing, rales or rhonchi Chest Wall: no tenderness Musculoskeletal: Full ROM of all extremities, no calf or popliteal tenderness GI: Abdomen is soft, non-distended, non tender to palpation. No masses appreciated. No rebound, guarding, or rigidity noted. Neurological: A&O x4. No cranial nerve dysfunction observed. No truncal ataxia. Moves all extremities. Sensation intact. Psychiatric: Cooperative and interactive. Normal mood and affect. Constitutional Vital Signs, click to edit/add: Last Vital Signs Temp 98.0 F 08/28/25 16:41 Pulse 76 08/28/25 16:41 Resp 18 08/28/25 16:41 BP 137/93 H 08/28/25 16:41 Pulse Ox 100 08/28/25 16:41 O2 Del Method Room Air 08/28/25 16:41 Documenting provider has reviewed patient's vital signs: yes Course Vital Signs Vital signs: Vital Signs Temperature 98.0 F 08/28/25 16:41 Pulse Rate 76 08/28/25 16:41 Respiratory Rate 18 08/28/25 16:41 Blood Pressure 137/93 H 08/28/25 16:41 Pulse Oximetry 100 08/28/25 16:41 Oxygen Delivery Method Room Air 08/28/25 16:41 Temperature 98.0 F 08/28/25 16:41 Pulse Rate 76 08/28/25 16:41 Respiratory Rate 18 08/28/25 16:41 Blood Pressure 137/93 H 08/28/25 16:41 Pulse Oximetry 100 08/28/25 16:41 Oxygen Delivery Method Room Air 08/28/25 16:41 Medical Decision Making MDM Narrative Medical decision making narrative: This is a 40-year-old male that presented to the emergency department with 4 days of substernal chest pain, SOB, worsened cough, nasal congestion, and diarrhea. Patient is a 20+ year smoker. He denies any family history of cardiac issues. He denies cardiac issues or medical history. He denies abdominal pain, nausea, vomiting, fever, or chills. Heart score : 2 (Low Risk) PERC negative?PE clinically ruled out-no D-dimer or imaging needed. EKG on arrival reviewed by myself and reveals normal sinus rhythm, no ST elevation, no ischemic changes. Heart rate 65. Chest x-ray reviewed by myself and is negative for acute cardiopulmonary pa thology, no pneumothorax, no effusion. On arrival patient is in no distress, vitals are hemodynamically stable. Patient is afebrile temperature 98 degrees. O2 saturations are 100% on room air. CBC, BMP, troponin, chest x-ray, COVID 19, influenza A/B ordered. Labs with no leukocytosis, WBC 10. BMP within normal limits. Troponin negative. COVID, influenza both negative. Patient updated with results and plan for discharge. I will give him a work note to be off today. I discussed with patient that Chest pain, non-cardiac in etiology ? likely viral or post- viral syndrome. Patient's vitals and clinical status have remained stable while in the emergency department. Patient was discharged in stable condition, return precautions discussed, plan for symptomatic treatment with hydration, OTC decongestions, cough suppressant with PCP follow-up. Differential Diagnosis Differential Diagnosis: ACS, viral syndrome, noncardiac chest pain, PE Lab Data Lab results reviewed: Yes I reviewed the patient's lab results Labs: Lab Results 08/28/25 08/28/25 Range/Units 16:47 17:34 WBC 10.2 (4.0-11.0) 10^3/uL RBC 4.99 (4.70-6.10) 10^6/uL Hgb 16.0 (14.0-18.0) g/dL Hct 46.7 (42.0-54.0) % MCV 93.6 (80.0-94.0) fL MCH 32.1 (25.9-34.0) pg MCHC 34.3 (29.9-35.2) g/dL RDW 12.1 (11.0-15.0) % Plt Count 351 (150-450) 10^3/uL MPV 9.2 L (9.5-13.5) fL Neut % (Auto) 47.9 (43.0-75.0) % Lymph % (Auto) 37.7 (20.5-60.0) % [place] % (Auto) 7.3 (1.7-12.0) % Eos % (Auto) 5.6 (0.9-7.0) % Baso % (Auto) 1.0 (0.2-2.0) % Neut # (Auto) 4.9 (1.4-6.5) 10^3/uL Lymph # (Auto) 3.9 H (1.2-3.8) 10^3/uL [place] # (Auto) 0.8 (0.3-0.8) 10^3/uL Eos # (Auto) 0.6 (0.0-0.7) 10^3/uL Baso # (Auto) 0.1 (0.0-0.1) 10^3/uL Abs Immat Gran (auto) 0.05 H (0.00-0.03) 10^3/uL Imm/Tot Granulo (auto) 0.5 (0.0-0.5) % Sodium 142 (136-145) mmol/L Potassium 4.1 (3.5-5.1) mmol/L Chloride 105 (98-107) mmol/L Carbon Dioxide 28.2 (21.0-32.0) mmol/L Anion Gap 12.9 BUN 8.0 (7.0-18.0) mg/dL Creatinine 0.84 (0.70-1.30) mg/dL Est GFR ( Amer) >60 (>=60 mL/min/1.73m^2) Est GFR (Non-Af Amer) >60 (>=60 mL/min/1.73m^2) BUN/Creatinine Ratio 9.5 Glucose 84 (74-106) mg/dL Calcium 8.8 (8.5-10.1) mg/dL Troponin I High Sens <4.0 L (4.0-76.1) pg/mL Influenza Type A Ag Negative Influenza Type B Ag Negative SARS-CoV-2 Ag (CV2AG) Negative (NEGATIVE) Imaging Data Chest x-ray: Attestation: I have reviewed the pertinent imaging results. Radiologist's impression: ITS Impressions Chest X-Ray 08/28/25 16:56 IMPRESSION: Negative acute pleural-parenchymal disease.. Impression dictated by: Brigido Betts M.D. 08/28/2025 6:06 PM Dictation Location: [place] [address] Electronically authenticated by: [id number] Y Date: 08/28/2025 18:06 ECG Data Attestation: ?I have reviewed the pertinent ECG results. Discharge Plan Discharge Chief Complaint: Upper Respiratory Infection Clinical Impression: Upper respiratory infection Patient Disposition: Home, Self-Care Time of Disposition Decision: 18:16 Condition: Good Mode of Transportation: Private Vehicle Print Language: Icelandic Instructions: Upper Respiratory Infection (ED) Referrals: Physician,Non-Staff, MD [Primary Care Provider] - 1 week
--- NOTE | 2025-08-28 17:07 | ECG_ITS ---
[facility] Test Date: 2025-08-28 Pat Name: BENNY VIRK Department: Room: - Gender: Male Clinic Assistant: : [id number] Requested By: [id number] Order Number: [id number] Reading MD: VICTOR MANUEL PRADO M.D. Measurements Intervals [place] Rate: 65 P: 69 FL: 144 QRS: 84 QRSD: 86 T: 64 QT: 384 QTc: 396 Interpretive Statements 1100 Sinus rhythm 9110 normal ECG Compared to ECG 09/09/2017 20:29:42 No significant changes Electronically Signed On 08-28-2025 17:39:45 EDT by VICTOR MANUEL PRADO M.D.
[2025-08-28 17:34] LABS: SARS-CoV-2 Ag NEGATIVE (NEGATIVE)
[2025-08-28 17:46] LABS: Hematocrit 46.7 % (42.0-54.0); Hemoglobin 16.0 g/dL (14.0-18.0); Immature Granulocytes Abs Auto 0.05 10^3/uL (0.00-0.03); Immature Granulocytes Pct Auto 0.5 % (0.0-0.5); Lymphocytes Absolute Auto 3.9 10^3/uL (1.2-3.8); Mean Corpuscular HGB Conc 34.3 g/dL (29.9-35.2); Mean Corpuscular Hemoglobin 32.1 pg (25.9-34.0); Mean Corpuscular Volume 93.6 fL (80.0-94.0); Platelet Count 351 10^3/uL (150-450); Red Blood Count 4.99 10^6/uL (4.70-6.10); White Blood Count 10.2 10^3/uL (4.0-11.0)
[2025-08-28 18:06] LABS: Anion Gap 12.9; Blood Urea Nitrogen 8.0 mg/dL (7.0-18.0); Calcium 8.8 mg/dL (8.5-10.1); Carbon Dioxide 28.2 mmol/L (21.0-32.0); Chloride 105 mmol/L (98-107); Estimated GFR (African America >60 (>=60 mL/min/1.73m^2); Estimated GFR (Non-African Ame >60 (>=60 mL/min/1.73m^2); Glucose 84 mg/dL (74-106); Potassium 4.1 mmol/L (3.5-5.1); Sodium 142 mmol/L (136-145)
== END 2025-08-28 18:21 | disposition home or self-care (01) ==
PROVIDERS: Physician Assistant; Emergency Provider Student in an Organized Health Care Education/Training Program
DX: J06.9 Acute upper respiratory infection, unspecified (principal); F17.200 Nicotine dependence, unspecified, uncomplicated
CPT/HCPCS: 36415; 71045; 80048; 84484; 85025; 85378; 87804; 87811; 93005; 99285